=== PATIENT | male | born 1975 | race Caucasian/White ===

== ENCOUNTER 2024-11-29 06:17 | Day surgery (SDC) | payer OTHER, SELFPAY | END 2024-11-29 10:23 | disposition home or self-care (01) | LOC: GI 06:17 | PROVIDERS: ATTENDING PHYSICIAN Student in an Organized Health Care Education/Training Program | DX: Z12.11 Encounter for screening for malignant neoplasm of colon (principal); K57.30 Diverticulosis of large intestine without perforation or abscess without bleeding; K22.2 Esophageal obstruction; K31.7 Polyp of stomach and duodenum; K21.00 Gastro-esophageal reflux disease with esophagitis, without bleeding; R12 Heartburn; K44.9 Diaphragmatic hernia without obstruction or gangrene; K62.1 Rectal polyp; D12.8 Benign neoplasm of rectum; Z13.810 Encounter for screening for upper gastrointestinal disorder | CPT/HCPCS: 45385; 45380; 43239; 88305 ==